=== PATIENT | male | born 1950 | race Two or more races ===

== ENCOUNTER 2021-05-10 06:25 | Day surgery (SDC) | payer OTHER | END 2021-05-10 11:20 | disposition home or self-care (01) | LOC: AMB-ENDOS 06:25 | PROVIDERS: ATTEND Surgery | DX: K63.5 Polyp of colon (principal); K57.30 Diverticulosis of large intestine without perforation or abscess without bleeding; Z20.822 Contact with and (suspected) exposure to COVID-19 ==